=== PATIENT | female | born 1965 | race African-American/Black ===

== ENCOUNTER 2019-07-28 14:37 | Emergency (ER) | payer SELFPAY ==
[2019-07-28] MEDS ORDERED: Labetalol IV* 5 MG/ML 20 ML VIAL IV PUSH ONE (14:41)
[2019-07-28] MEDS ORDERED: Morphine 4 MG/ML VIAL (1 ml) 4 MG/ML VIAL IV ONE (14:41)
[2019-07-28] MEDS ORDERED: Metoclopramide IV* 5 MG/ML 2 ML VIAL IV SLOW PU ONE (14:44)
[2019-07-28] MEDS ORDERED: diPHENhydraMINE IV* 50 MG/ML 1 ml VIAL (BENADRYL) SLOW PUSH ONE (14:44)
--- NOTE | 2019-07-28 14:45 | ED ---
Hypertension - HPI Summary HPI Summary: This patient is a 54 year old F BIBA to ED via EMS with a chief complaint of headache localized behind the right eye and face since [facility]. Patient took her Lisinopril and then 5 minutes later began to feel intense pain localized behind the right eye and right face. Patient starting on Lisinopril last month and has been taking it as prescribed. Per EMS, patient was hypertensive at 210/100 on site and 180/100 on arrival. Patient denies a history of migraine headaches and ablations. The patient rates the pain 8/10 in severity. Symptoms aggravated by nothing. Symptoms alleviated by nothing. Patient denies nausea, vomiting, chest pain, shortness of breath, dizziness. Home Medications Medication Instructions Recorded Confirmed Type lisinopriL [Lisinopril] 1 tab PO DAILY 07/28/19 07/28/19 History - History of Current Complaint Stated Complaint: HEADACHE PER EMS Hx Obtained From: Patient Onset/Duration: Started Hours Ago, Still Present Timing: Constant Reported Blood Pressure Prior To Arrival: 180/100 Aggravating Factor(s): Nothing Alleviating Factor(s): Nothing Associated Signs & Symptoms: Negative - nausea, vomiting, chest pain, shortness of breath, dizziness, Headaches - Localized behind right eye and right face - Allergies/Home Medications Allergies/Adverse Reactions: Allergies Allergy/AdvReac Type Severity Reaction Status Date / Time No Known Allergies Allergy Verified 07/28/19 14:44 Home Medications: Home Medications lisinopriL [Lisinopril] 1 tab PO DAILY 07/28/19 [History Confirmed 07/28/19] PMH/Surg Hx/FS Hx/Imm Hx Endocrine/Hematology History: Reports: Hx Thyroid Disease - Graves' disease Cardiovascular History: Reports: Hx Hypertension Musculoskeletal History: Reports: Other Musculoskeletal History - Mutiple sclerosis - Surgical History Surgery Procedure, Year, and Place: Denies - Family History Known Family History: Negative: Cardiac Disease, Hypertension, Diabetes - Social History Alcohol Use: None Hx Substance Use: No Substance Use Type: Reports: None Hx Tobacco Use: No Smoking Status (MU): Never Smoked Tobacco Review of Systems Negative: Chest Pain Negative: Shortness Of Breath Negative: Vomiting, Nausea Neurological/Mental Status: Negative - Dizziness Positive: Headache - Behind right eye and right face All Other Systems Reviewed And Are Negative: Yes Physical Exam - Summary Physical Exam Summary: VITAL SIGNS: Reviewed. GENERAL: Patient is a well-developed and nourished female who is lying comfortable in the stretcher. Patient is not in any acute respiratory distress. HEAD AND FACE: No signs of trauma. No ecchymosis, hematomas or skull depressions. No sinus tenderness. EYES: PERRLA, EOMI x 2, No injected conjunctiva, no nystagmus. EARS: Hearing grossly intact. Ear canals and tympanic membranes are within normal limits. MOUTH: Oropharynx within normal limits. NECK: Supple, trachea is midline, no adenopathy, no JVD, no carotid bruit, no c- spine tenderness, neck with full ROM. CHEST: Symmetric, no tenderness at palpation. LUNGS: Clear to auscultation bilaterally. No wheezing or crackles. CVS: Regular rate and rhythm, S1 and S2 present, no murmurs or gallops appreciated. ABDOMEN: Soft, non-tender. No signs of distention. No rebound, no guarding, and no masses palpated. Bowel sounds are normal. EXTREMITIES: FROM in all major joints, no edema, no cyanosis or clubbing. NEURO: Alert and oriented x 3. No acute neurological deficits. Speech is normal and follows commands. GCS: 15. SKIN: Dry and warm. Triage Information Reviewed: Yes Vital Signs On Initial Exam: Initial Vitals Temp Pulse Resp BP Pulse Ox 98.2 F 90 16 162/84 99 07/28/19 14:39 07/28/19 14:39 07/28/19 14:39 07/28/19 14:39 07/28/19 14:39 Vital Signs Reviewed: Yes Procedures - Sedation Patient Received Moderate/Deep Sedation with Procedure: No Diagnostics - Laboratory Result Diagrams: 07/28/19 15:57 07/28/19 14:46 Lab Statement: Any lab studies that have been ordered have been reviewed, and results considered in the medical decision making process. - CT Brain CT Interpretation Completed By: Radiologist Summary of CT Findings: No acute intracranial abnormality. Dr. Torres has reviewed this radiology report. - EKG 1447 Cardiac Rate: NL - 94 BPM EKG Rhythm: Sinus Rhythm ST Segment: Normal Ectopy: None Summary of EKG Findings: An EKG at 1447 revealed NSR at 94 BPM, no ST elevations , normal axis. Dr. Torres has reviewed and interpreted this EKG. Re-Evaluation - Re-Evaluation First Eval Re-Evaluation Time: 15:34 Comment: BP 152/84. Patient is refusing IV medication so I will give oral meds. Second Eval Re-Evaluation Time: 16:39 Comment: With treatment, patient feels much better. Hypertension Course/Dx - Course Assessment/Plan: This patient is a 54 year old F BIBA to ED via EMS with a chief complaint of headache localized behind the right eye and face since [facility]. Patient took her Lisinopril and then 5 minutes later began to feel intense pain localized behind the right eye and right face. Patient starting on Lisinopril last month and has been taking it as prescribed. Per EMS, patient was hypertensive at 210/100 on site and 180/100 on arrival. Patient denies a history of migraine headaches and ablations. The patient rates the pain 8/10 in severity. Symptoms aggravated by nothing. Symptoms alleviated by nothing. Patient denies nausea, vomiting, chest pain, shortness of breath, dizziness. In the ED course the patient was placed in a monitoring and evaluation advisor. Patient declined IV access. Past medical records reviewed. Blood test w/o a significant abnormality except for Sodium 134, Cl 29. Alk. phosphatase 107, CRP 13.3. In the ED course the patient was given Reglan, Benadryl, and an oxycodone for pain. The blood pressure significantly improved Raynauds and 54/87. Patient s pain around the right side of the head improved. At this point, I discussed all the findings and test results with the patient. Patient was instructed to return to the emergency room immediately if any of the symptoms return or worsen.Plan of care was discussed with the patient and the patient understands and agrees. All questions were answered at patient satisfaction. Patient understands and agrees. Neurological exam before discharge: Patient is alert and oriented x 3. No acute neurological deficits. Patient's vital signs are stable. Patient is to follow up with [facility] in the next 2 3 days. They understand and agree. The plan of care was discussed with the patient and the patient understands and agrees with the plan of care. All questions were answered at patient satisfaction. There were no further complaints or concerns. - Diagnoses Provider Diagnoses: HTN (hypertension), Headache Discharge ED - Sign-Out/Discharge Documenting (check all that apply): Patient Departure - Discharge - Discharge Plan Condition: Stable Disposition: HOME Patient Education Materials: Heart Healthy Diet (ED), Hypertensive Crisis (ED) , Hypertension (ED) Referrals: [facility] [Outside] Additional Instructions: FOLLOW UP WITH YOUR PRIMARY CARE PROVIDER WITHIN ONE WEEK FOR YOUR HYPERTENSION NOTED TODAY. RETURN TO THE ED FOR ANY WORSENING OR NEW SYMPTOMS. - Billing Disposition and Condition Condition: STABLE Disposition: Home - Attestation Statements Document Initiated by Scribe: Yes Documenting Scribe: Kirt Maier Provider For Whom Margaret is Documenting (Include Credential): Israel Torres MD Scribe Attestation: Kirt Garcia, scribed for Israel Torres MD on 07/29/19 at 0711. Scribe Documentation Reviewed: Yes Provider Attestation: The documentation as recorded by the Kirt billingsley accurately reflects the service I personally performed and the decisions made by , Israel Torres MD Status of Scribe Document: Viewed
[2019-07-28] MEDS ORDERED: Metoclopramide TAB* 10 MG PO ONE (15:31)
[2019-07-28] MEDS ORDERED: oxyCODONE TAB* 5 MG TAB PO ONE (15:31)
[2019-07-28] MEDS ORDERED: diPHENhydraMINE PO* 25 MG PO ONE (15:31)
[2019-07-28 16:11] LABS: ABS Eosinophils 0.7 10^3/ul (0-0.6); ABS Monocytes 0.2 10^3/ul (0-0.8); Eosinophil % 11.8 %; Hematocrit 37 % (35-47); Hemoglobin 12.2 g/dL (12.0-16.0); Lymphocyte % 16.7 %; Mean Corpuscular HGB Conc 33 g/dL (31-36); Mean Corpuscular Hemoglobin 29 pg (27-31); Mean Corpuscular Volume 88 fL (80-97); Mean Platelet Volume 8.8 fL (7.4-10.4); Nucleated Red Blood Cells % 0.1; Platelet Count 235 10^3/uL (150-450); Red Blood Count 4.22 10^6 /uL (3.70-4.87); Red Cell Distribution Width 15 % (10-15)
[2019-07-28 16:16] LABS: Albumin 4.1 g/dL (3.2-5.2); Calcium 9.1 mg/dL (8.6-10.3)
[2019-07-28 16:17] LABS: Anion Gap 10 mmol/L (2-11); CO2 Carbon Dioxide 20 mmol/L (22-32); Chloride 104 mmol/L (101-111); Sodium 134 mmol/L (135-145)
[2019-07-28 16:18] LABS: ALT 16 U/L (7-52); Albumin/Globulin Ratio 1.1 (1-3); Alkaline Phosphatase 107 U/L (34-104); BUN/Creatinine Ratio 18.8 (8-20); Blood Urea Nitrogen 13 mg/dL (6-24); C Reactive Protein 13.41 mg/L (<8.01); EGFR African American 107.7 (>60); Globulin 3.9 g/dL (2-4); Glucose 100 mg/dL (70-100)
[2019-07-28 16:23] LABS: Urine Appearance Cloudy; Urine Bilirubin Negative (Negative); Urine Blood Negative (Negative); Urine Color Yellow; Urine Glucose Negative (Negative); Urine Ketones Negative (Negative); Urine Nitrite Negative (Negative); Urine Protein Negative (Negative); Urine Urobilinogen Negative (Negative)
[2019-07-28 16:50] VITALS: BP 154/85
== END 2019-07-28 16:49 | disposition home or self-care (01) ==
LOC: ED 14:37
DX: I10 Essential (primary) hypertension (principal); R51 Headache; E05.00 Thyrotoxicosis with diffuse goiter without thyrotoxic crisis or storm; G35 Multiple sclerosis; Z79.899 Other long term (current) drug therapy
CPT/HCPCS: 36415; 70450; 80053; 81003; 85025; 86140; 93005; 99283; A9270-GY